=== PATIENT | female | born 1990 | race Caucasian/White ===

== ENCOUNTER 2017-07-12 10:02 | Day surgery (SDC) | payer OTHER ==
--- NOTE | 2017-07-11 20:48 | PDGENHP ---
History and Physical - Chief Complaint Right Hip Pain - History of Present Illness Diagnosis: 1. Bilateral~Femoroacetabular impingement (RADHA) Cam type, with~resultant labral tear, right side symptomatic 2. Right (but minimal)~Greater Trochanteric Bursitis 3. Right hamstring tendinopathy HISTORY OF PRESENT ILLNESS: Tjis a 27 y.o.~~~active female~who I have had the pleasure to consult on today. I have enjoyed meeting her. She~lives in [place], but working here while out on assignment. ~Tjworks as a construction laborer. ~She~is single; she~ has no~children. ~Tjenjoys running, hiking. Gia's right~hip pain started 2.5 years ago, with some~recalled trauma or injury, and with no~previous complaints. Did increase her running at that time and had a stumble at work. Tjdoes not have~a known history of hip dysplasia. Has seen multiple doctors in past year. Presentation today is of anterior and posterior right~hip pain. ~The hip does~ wake her~at night and does~click and catch on her. Sitting can be a real struggle~for her. Tjdoes~report suffering from lower back pain episodes. Tjhas~participated in physical therapy and has~tried other conservative measures including massage therapy, MRA with lidocaine (got rid of her deep hip pain for 1-2 hrs), and glute med injection (which the anesthetic provided significant relief for her lateral pain - done November 2016). She~has~received sufficient symptomatic improvement. Tjhas~utilized medication for pain management, including NSAID. Tjdenies issues with the left hip. ~ Tjunderstands that she~has a hip and pelvis problem which should be researched and wishes to get a better understanding of her~hip status, followed by an establishment of a treatment strategy, hoping sheBarbrawould be able to get back to her~well being active life. History: Past medical history: ~ Patient ~has a past medical history of Asthma. Relevant familial history: None which is relevant Past surgical history: no surgeries Tjhas never received general anesthesia. I have reviewed, verified and agree with the past medical, surgical, family and social history. Current Medications:~currently has no medications in their medication list. ALLERGIES:~has no allergies on file. Objective: Physical Examination: Tjis 5~feet 5~inches tall and weighs 132~Lbs. Tjis AAO x3; she~is well- nourished, in NAD. Skin is warm and dry. ~Breathing is non-labored. ~CV with RRR by pulse. Abdomen is soft, NTND. Currently, she~walks with a normal~gait. Trendelenburg sign is negative~and proprioception is reduced, both~sides. She~presents with no~signs of joint laxity. Beightons Score: 0 ~ Lower spine examination is negative~for sciatic or femoral nerve irritation with negative~SLR &~femoral stretch tests. Range of motion of the spine is normal~for flexion, extension, and rotations, with no~associated pain. Strength, Sensation and pulses are normal - bilaterally Ankles and knees exams are normal~and no~mal-alignment is evident. She~has no leg length discrepancy. Thigh circumference is symmetric~with no evidence for muscle atrophy~on both~ sides. Hip ROM (degrees): FL ER At 90~hip FL IR At 90~hip FL AB AD EX IR Neutral hip ER Neutral hip R 105/pain 55 15 40 10 5 45 40 L 105 50 15 50 5 5 50 40 Specific hip and pelvis tests: Impingement Test TY Roll Add. Longus R +++ +++ Negative Negative L Negative Negative Negative Negative Glut. Med ITB Posterior Imp R Negative 5/5 strength Negative 5/5 strength Negative L Negative 5/5 strength Negative 5/5 strength Negative Squeeze test measured normal Bony Symphysis pubis is pain free~to touch while concentric activity of the rectus abdominis, does~not~produce pain at its insertion. Ilio Psos specific tests are negative for pain during cycling for both hips~and remarkable for nothing. HF has no pain both hips. posterior~capsule tenderness on the right Greater trochanteric burse is painful~on the right hip. Piriformis tests: FAIR is negative, with no~local signs of neuritis related to sciatic nerve. SIJs examination is normal~with normal~TY in relation and local tenderness. Hamstrings tests are positive~functional contraction and positive~tendinopathy the right hip. On a daily basis, the following percentages reflect Gia's overall total pain: Deep hip: 70% Ischial tuberosity/Hamstrings: 20% Greater troch: 10% Imaging: Radiology studies which I have personally reviewed, analyzed and measured are below: XR: AP of the hip and pelvis: Performed in a suboptimal~technique Coccyx to pubic symphysis distance 1.0 cm. 0~degrees caudal [place] Lines are preserved. No~Pathological signs are seen in the Symphysis Pubis. No~Pathological signs are seen at the Ischial tuberosity. ~ Specific measurements show: NSA~ LCE Sourcil~Angle Sharp's angle Lat. Cam Lat. Pincer C.Over~sign Head~Coverage % ATDmm R 132 28 5 N + N N 78.1 + L 125 31 2 N + N N 81.1 + Pos. wall sign ISS NAD ~~Dysplasia Comments R Negative Negative 14.5~mm Negative L Negative Negative 14.3~mm Negative Sclerosis Sup. Lat. OA Cysts Joint Space-WBZ Joint Space-Medial R Negative Negative Negative 3.9~mm 3.5~mm L Negative Negative Negative 3.8~mm 3.4~mm X Table lateral: Anterior cam lesion is seen~on both hips. Alpha Angle: ~ Right 60~dergrees Left 61~degrees MRI shows: 11/09/16 - shows diminutive labrum anterolaterally (small area only), good cartilage, no subchondral edema. No evidence of hamstrings tear, minimal increased signal on origin. Impression and plan: Tjis a 27 y.o.~active female~suffering from symptomatic right~hip pain due to Bilateral~Femoroacetabular impingement (RADHA) Cam type, with~resultant labral tear, Only Right side symptomatic~causing significant disability to her~and altering her~sport and life activities. Physical examination, imaging, and her~story correspond with the diagnosis mentioned above. I explained that femoroacetabular impingement (RADHA) arises due to a bony or soft tissue conflict between the femur (ball) and acetabulum (socket) caused by an abnormality in the shape of the hip joint. Over time, repetitive impingement can result in damage to the labrum and adjacent surface cartilage within the socket, ultimately giving rise to progressive osteoarthritis of the hip. I explained that although a labral tear can be a source of pain, it is rarely the root of the problem and typically occurs secondary to an underlying abnormality in the shape and mechanics of the hip joint. ~ I reviewed conservative treatment options for RADHA including activity modification to avoid positions of impingement, physical therapy, non-steroidal anti-inflammatory medications, and various injections (corticosteroid and PRP) aimed at reducing inflammation in the hip joint or/and preventing dynamic impingement. PRP injections may promote healing and reduce symptoms in certain cases but it will not repair chronically damaged tissue. Although these measures may help to buy time and reduce current level of symptoms, they are not a definitive solution to the problem given the underlying abnormality in the shape of the hip joint. Patients who have failed conservative management and continue to experience symptoms are candidates for hip arthroscopy, a minimally invasive surgery that can definitively address the underlying problem. Hip arthroscopy typically includes treating the labrum with either repair or reconstruction of the torn labrum; as well as addressing the underlying abnormalities by restoring the normal shape to the hip joint. ~If the cartilage is damaged a Microfracture surgical procedure may also be necessary to help stimulate the growth of fibrocartilage. ~If a patient requires a labral reconstruction or a Microfracture, the initial rehabilitation from the surgery may take longer, but the half-way results are typically favorable. I explained that although a labral tear can be a source of pain, it is rarely the root of the problem and typically occurs secondary to an underlying abnormality in the shape and mechanics of the hip joint. Conservative management with rest, activity modification, and PRP injections may promote healing and reduce symptoms in certain cases. When these measures are inadequate , hip arthroscopy is typically performed to repair or reconstruct the torn labrum and address the underlying abnormality in the shape of the hip joint. ~ Hip arthroscopy typically includes treating the labrum with either debridement, repair, or reconstruction of the torn labrum; as well as addressing the underlying abnormalities by restoring the normal shape to the hip joint. ~If the cartilage is damaged a Microfracture procedure may also be necessary to help stimulate the growth of fibrocartilage. ~If a patient requires a labral reconstruction or a Microfracture the initial rehabilitation from the surgery may take longer, but the half-way results are typically favorable. Gia~will review the info presented. In order to obtain more detailed information regarding the alignment, orientation, and shape of the bony hip and pelvis I will order a CT scan to be performed. The results of the CT scan, including femoral torsion and acetabular version measured values and 3D images, will aid me in deciding on the best treatment strategy and surgical pre-planning. Gia is going to think about her options and get back to us. Gia~is happy with this plan. I have also supplied her~with handouts, outlining the expected surgical treatment and rehab involved. I wish~Gia~all the best, ~~ Toma Cui MD History Information I have personally reviewed and updated: medical history - Social History Smoking Status: Never smoked Review of Systems Review of Systems: Physical Exam Physical Exam:
[2017-07-12] MEDS ORDERED: PREGABALIN 150 MG CAP PO ONE (10:10)
[2017-07-12] MEDS ORDERED: ACETAMINOPHEN 500 MG TAB PO ONE (10:10)
[2017-07-12] MEDS ORDERED: ceFAZolin 2 GM/SWFI 2 GM/20 ML SYR IVP ONE (10:10)
[2017-07-12] MEDS ORDERED: LR 1,000 ML IV ONE (10:11)
[2017-07-12] MEDS ORDERED: BUPIVACAINE 0.25% 30 ML SDV ONE (11:07)
--- NOTE | 2017-07-12 12:01 | PDANEPAE ---
ANE Past Medical History - Cardiovascular History Hx Hypertension: No Hx Arrhythmias: No Hx Chest Pain: No Hx Coronary Artery / Peripheral Vascular Disease: No Hx CHF / Valvular Disease: No Hx Palpitations: Yes - Pulmonary History Hx COPD: No Hx Asthma/Reactive Airway Disease: Yes Hx Recent Upper Respiratory Infection: No Hx Oxygen in Use at Home: No Hx Sleep Apnea: No Sleep Apnea Screening Result - Last Documented: Negative Pulmonary History Comment: exercise and allergy induced - Neurologic History Hx Cerebrovascular Accident: No Hx Seizures: No Hx Dementia: No - Endocrine History Hx Diabetes: No - Renal History Hx Renal Disorders: No - Liver History Hx Hepatic Disorders: No - Neurological & Psychiatric Hx Hx Neurological and Psychiatric Disorders: Yes Neurological / Psychiatric History Comment: depression,anxiety - Cancer History Hx Cancer: No - Congenital Disorder History Hx Congenital Disorders: No - GI History Hx Gastrointestinal Disorders: Yes Gastrointestinal History Comment: gluten,strawberry,squash,pear. intolerant of pepper in any form. pt is vegatarian - Other Health History Other Health History: rash from dog on face - Chronic Pain History Chronic Pain: Yes (R shoulder,R of spine,lower back on R, R FRONT HIP r KNEE AND ANKLE) - Surgical History Prior Surgeries: none ANE Review of Systems Review of Systems: - Exercise capacity METS (RN): 4 METS ANE Patient History - Home Medications Home Medications: Blisovi Fe 1-20 Tablet 07/12/17 [Last Taken 07/11/17] CETIRIZINE HCL 10 mg 07/12/17 [Last Taken 07/11/17] - NPO status NPO Since - Liquids (Date): 07/12/17 NPO Since - Liquids (Time): 03:30 NPO Since - Solids (Date): 07/11/17 NPO Since - Solids (Time): 21:00 - Smoking Hx Smoking Status: Never smoked - Family Anes Hx Family Hx Anesthesia Complications: brother has multiple allergies around anesthesia ANE Labs/Vital Signs - Vital Signs Blood Pressure: 123/59 Heart Rate: 102 Respiratory Rate: 12 O2 Sat (%): 98 Height: 162.56 cm Weight: 59.874 kg ANE Physical Exam - Airway Neck exam: FROM Mallampati Score: Class 1 Mouth exam: normal dental/mouth exam - Pulmonary Pulmonary: no respiratory distress - Cardiovascular Cardiovascular: regular rate and rhythym - ASA Status ASA Status: I ANE Anesthesia Plan Anesthesia Plan: general endotracheal anesthesia
[2017-07-12] MEDS ORDERED: PROPOFOL 200 MG/20 ML VIAL ONE ×2 (12:10→15:49)
[2017-07-12] MEDS ORDERED: MIDAZOLAM 2 MG/2 ML VIAL ONE (12:10)
[2017-07-12] MEDS ORDERED: SUCCINYLCHOLINE CHLORIDE 200 MG/10 ML SYR IVP ONE (12:11)
[2017-07-12] MEDS ORDERED: METOCLOPRAMIDE 10 MG/2 ML VIAL ONE (12:11)
[2017-07-12] MEDS ORDERED: DEXAMETHASONE 4 MG/ML VIAL ONE ×2 (12:11)
[2017-07-12] MEDS ORDERED: LIDOCAINE 2% 100 MG/5 ML SYR ONE (12:11)
[2017-07-12] MEDS ORDERED: ROCURONIUM 50 MG/5 ML VIAL ONE (12:11)
[2017-07-12] MEDS ORDERED: KETOROLAC 30 MG/1 ML SDV ONE (12:12)
--- NOTE | 2017-07-12 16:35 | POSTANESTH ---
Post Anesthetic Evaluation Cardiovascular Status: Similar to Pre-Op Cond Respiratory Status: Similar to Pre-op Cond. Level of Consciousness/Mental Status: Alert and Oriented Pain Control: Adequate, Prn Tx Ordered Nausea/Vomiting Control: Adequate, Prn Tx Ordered Complications Possibly Related to Anesthesia: None Noted
[2017-07-12] MEDS ORDERED: fentaNYL 100 MCG/2 ML INJ IVP PRN (16:37)
[2017-07-12] MEDS ORDERED: MEPERIDINE 25 MG/ML SYR IVP PRN (16:37)
[2017-07-12] MEDS ORDERED: HYDROCODONE/APAP 5/325 TAB PO PRN (16:37)
[2017-07-12] MEDS ORDERED: NALOXONE HCL 0.4 MG/ML INJ IVP PRN (16:37)
[2017-07-12] MEDS ORDERED: ALBUTEROL 3 ML DEYVIAL IH PRN (16:37)
[2017-07-12] MEDS ORDERED: ONDANSETRON 4 MG/2 ML VIAL IVP PRN (16:37)
[2017-07-12] MEDS ORDERED: ACETAMINOPHEN 500 MG TAB PO PRN (16:37)
[2017-07-12] MEDS ORDERED: OXYCODONE/APAP 5/325 TAB PO PRN (16:37)
[2017-07-12 16:41] VITALS: TEMP 97.7
[2017-07-12] MEDS ORDERED: OXYCODONE/APAP 5/325 TAB ONE (17:04)
[2017-07-12 17:17] VITALS: BP 130/77
[2017-07-12 17:29] VITALS: PULSE 95; RESP 14; O2SAT 98
[2017-07-12] MEDS ORDERED: ONDANSETRON 4 MG/2 ML VIAL ONE (17:56)
== END 2017-07-12 18:29 | disposition home or self-care (01) ==
LOC: FSGY 10:02
PROVIDERS: ATTEND Orthopaedic Surgery Sports Medicine
PROC: 0SQ94ZZ Repair Right Hip Joint, Percutaneous Endoscopic Approach (ICD-10-PCS; principal; 2017-07-12 11:30)
DX: M25.851 Other specified joint disorders, right hip (principal)
CPT/HCPCS: C1713; J0171; J0330; J0690; J1100; J1885; J2001; J2250; J2405; J2704; J2765